=== PATIENT | female | born 1990 | race Two or more races ===

== ENCOUNTER 2018-10-16 21:03 | Emergency (ER) | payer SELFPAY ==
[~2018-10-16] VITALS: Ht 157.5 cm; Wt 56.2 kg
[2018-10-16 21:26] VITALS: BP 130/75
[2018-10-16 22:25] LABS: Basophils # (auto) 0 uL; Basophils % (auto) 0.4 % (0.0-2.0); Eosinophils # (auto) 0.1 uL; Eosinophils % (auto) 1.3 % (0.0-7.0); Hematocrit 41.9 % (36.0-46.0); Hemoglobin 14.2 g/dL (12.2-16.2); Lymphocytes # (auto) 2.5 uL; Lymphocytes % (auto) 40.9 % (10.0-50.0); Mean Corpuscular Hemoglobin 31.3 pg (28.0-32.0); Mean Corpuscular Hgb Conc. 33.9 g/dL (32.0-36.0); Mean Corpuscular Volume 92.3 fL (80.0-100.0); Monocytes # (auto) 0.4 uL; Monocytes % (auto) 7.2 % (0.0-12.0); Neutrophils # (auto) 3.1 uL; Neutrophils % (auto) 50.2 % (37.0-80.0); Nucleated Red Blood Cells % 0.1 %; Platelet Count (auto) 263 10^3/uL (140-450); Red Blood Cells 4.54 10^6/uL (4.0-5.20); Red Cell Distribution Width 12.3 % (11.8-14.3); White Blood Cell 6.1 10^3/uL (4.4-10.8)
[2018-10-16] MEDS ORDERED: cefTRIAXone SOD 1,000 MG VL IM ONE (22:30)
[2018-10-16] MEDS ORDERED: AZITHROMYCIN 250 MG TAB PO ONE (22:30)
[2018-10-16 22:42] LABS: Potassium 3.8 mmol/L (3.5-5.1)
[2018-10-16 22:47] LABS: Albumin 3.9 g/dL (3.4-5.0); BUN/Creatinine Ratio 27.5; Calcium 8.3 mg/dL (8.5-10.1)
[2018-10-16 22:49] LABS: Bilirubin, Total 0.4 mg/dL (0.2-1.0); Total Protein 7.4 g/dL (6.4-8.2)
[2018-10-16 22:49] LABS: Urine Bacteria FEW /hpf (None Seen); Urine Blood Negative /uL (Negative); Urine WBC 31 /hpf (0 - 5)
== END 2018-10-16 23:20 | disposition home or self-care (01) ==
LOC: ER 21:14
DX: N39.0 Urinary tract infection, site not specified (principal); A64 Unspecified sexually transmitted disease
CPT/HCPCS: 36415; 80053; 81001; 84702; 85025; 96372; 99283; J0696

== ENCOUNTER 2019-05-29 11:04 | Observation (INO) | payer MEDICAID ==
[2019-05-29] MEDS ORDERED: PREN-96 PO (12:24)
== END 2019-05-29 13:15 | disposition home or self-care (01) | DRG 566 ==
LOC: LDRP 11:04
PROVIDERS: ADMIT Obstetrics & Gynecology; ATTEND Obstetrics & Gynecology
DX: O36.5930 Maternal care for other known or suspected poor fetal growth, third trimester, not applicable or unspecified (principal); Z3A.36 36 weeks gestation of pregnancy
CPT/HCPCS: 59025; 81002; G0378

== ENCOUNTER 2019-06-05 09:02 | Observation (INO) | payer MEDICAID ==
[~2019-06-05 09:02] MED LIST: PREN-96 PO
== END 2019-06-05 10:20 | disposition home or self-care (01) | DRG 566 ==
LOC: LDRP 09:02
PROVIDERS: ADMIT Obstetrics & Gynecology; ATTEND Obstetrics & Gynecology
DX: O36.5930 Maternal care for other known or suspected poor fetal growth, third trimester, not applicable or unspecified (principal); O26.893 Other specified pregnancy related conditions, third trimester; O41.93X0 Disorder of amniotic fluid and membranes, unspecified, third trimester, not applicable or unspecified; R51 Headache; R11.0 Nausea; Z3A.37 37 weeks gestation of pregnancy
CPT/HCPCS: 59025; 76818; 81002; G0378

== ENCOUNTER 2019-06-07 10:47 | Inpatient (IN) | payer MEDICAID ==
[~2019-06-07] VITALS: Ht 154.9 cm; Wt 74.8 kg
[2019-06-07] MEDS ORDERED: LACT. RINGERS/OXYTOCIN 20UNITS 1,000 ML IV SCH (12:09)
[2019-06-07] MEDS ORDERED: PENICILLIN G POT 5MIL/D5 50ML 50 ML IV ONE (12:15)
[2019-06-07] MEDS ORDERED: NALBUPHINE HCL 10 MG/1ml INJECTION IV PRN (12:15)
[2019-06-07] MEDS ORDERED: LIDOCAINE 2%HCL (LOCAL ANESTH.) INJ 20ML MDV ID ONE (12:15)
[2019-06-07] MEDS ORDERED: PHISODERM TOP SOLN 240ML BTL TOP PRN (12:15)
[2019-06-07] MEDS ORDERED: METHYLERGONOVINE MALEATE 0.2 MG/ML AMP IM PRN (12:15)
[2019-06-07 12:58] LABS: Basophils # (auto) 0 uL; Basophils % (auto) 0.2 % (0.0-2.0); Eosinophils # (auto) 0 uL; Eosinophils % (auto) 0.6 % (0.0-7.0); Hematocrit 37.4 % (36.0-46.0); Hemoglobin 12.7 g/dL (12.2-16.2); Lymphocytes # (auto) 1.2 uL; Lymphocytes % (auto) 15.4 % (10.0-50.0); Mean Corpuscular Hemoglobin 31.4 pg (28.0-32.0); Mean Corpuscular Hgb Conc. 33.9 g/dL (32.0-36.0); Mean Corpuscular Volume 92.7 fL (80.0-100.0); Monocytes # (auto) 0.6 uL; Neutrophils # (auto) 5.7 uL; Neutrophils % (auto) 75.8 % (37.0-80.0); Platelet Count (auto) 212 10^3/uL (140-450); Red Blood Cells 4.03 10^6/uL (4.0-5.20); Red Cell Distribution Width 12.9 % (11.8-14.3); White Blood Cell 7.5 10^3/uL (4.4-10.8)
[2019-06-07] MEDS: LACTATED RINGER'S 1,000 ML IV SCH (12:58)
[2019-06-07 13:13] LABS: INR 0.93 (0.9-1.15); Partial Thromboplastin Time 28.1 sec (23.64-32.05)
[2019-06-07 13:17] LABS: Albumin 2.4 g/dL (3.4-5.0); BUN/Creatinine Ratio 19.6; Calcium 8.2 mg/dL (8.5-10.1); Potassium 3.8 mmol/L (3.5-5.1)
[2019-06-07 13:20] LABS: Bilirubin, Total 0.4 mg/dL (0.2-1.0); Total Protein 6.8 g/dL (6.4-8.2)
[2019-06-07] MEDS: WITCH HAZEL-GLYCERIN PAD TOP PRN (13:40)
[2019-06-07] MEDS: DERMOPLAST 60ML BOTTLE TOP PRN (13:41)
[2019-06-07 16:08] LABS: Urine Bacteria NONE SEEN /hpf (None Seen); Urine Blood 1+ /uL (Negative); Urine Hyaline Cast FEW /lpf (0 - 2); Urine Mucus FEW (None Seen); Urine Specific Gravity 1.025 (1.001-1.035); Urine WBC 5 /hpf (0 - 5)
[2019-06-07] MEDS ORDERED: PENICILLIN G POTASSIUM 2,500,000 UNITS in D5W 5% 50 ML IV SCH (16:15)
[2019-06-07] MEDS: PENICILLIN G POTASSIUM 2,500,000 UNITS in D5W 5% 50 ML IV SCH ×2 (17:26→21:15)
[2019-06-07] MEDS ORDERED: LACTATED RINGER'S 1,000 ML IV ONE (23:29)
[2019-06-07] MEDS ORDERED: LIDOCAINE HCL 2 %PF INJ 10ML AMP IJ ONE (23:30)
[2019-06-07] MEDS ORDERED: fentaNYL W ROPIVACAINE 150 ML EPI SCH (23:30)
[2019-06-07] MEDS ORDERED: ePHEDrine SULFATE 50 MG/ML AMP IV ONE (23:30)
[2019-06-08] MEDS ORDERED: SODIUM CHLORIDE 0.9% 500 ML IV PRN (00:32)
[2019-06-08] MEDS ORDERED: ePHEDrine SULFATE 50 MG/ML AMP IV ONE (00:45)
[2019-06-08] MEDS ORDERED: fentaNYL W ROPIVACAINE 150 ML EPI SCH (00:45)
[2019-06-08] MEDS ORDERED: NALOXONE HCL 0.4 MG/ML VIAL IV ONE (00:45)
[2019-06-08] MEDS: PENICILLIN G POTASSIUM 2,500,000 UNITS in D5W 5% 50 ML IV SCH (01:22)
--- NOTE | 2019-06-08 04:43 | NUR ---
Teaching: Reviewed information in [employer] booklet with patient. Discussed benefits of and risks associated with not . Discussed different positions, proper latch, feeding cues, and baby-led . Provided information of medication side effects related to . All questions and concerns addressed at this time. Patient verbalized understanding of information. Infant latched at this time.
[2019-06-08 05:16] LABS: Alcohol, Urine < 3.0 mg/dL (0-5); Amphetamine Screen, Urine NEGATIVE (NEGATIVE); Barbiturate Scree,Urine NEGATIVE (NEGATIVE); Benzodiazephine Screen, Urine NEGATIVE (NEGATIVE); Cannabinoid Screen, Urine NEGATIVE (NEGATIVE); Cocaine Screen, Urine NEGATIVE (NEGATIVE); Opiate Scree,Urine NEGATIVE (NEGATIVE); Phencyclidine Screen, Urine NEGATIVE (NEGATIVE)
[2019-06-08] MEDS: LACTATED RINGER'S 1,000 ML IV SCH (06:18)
--- NOTE | 2019-06-08 06:35 | NUR ---
Ambulation: Patient OOB with standby assistance by RN. Patient ambulated to bathroom with steady gait. Patient able to void without difficulty. [facility] teaching provided with returned demonstration by patient. Clean gown provided and bed linen changed. Patient ambulated back to bed with steady gait and no distress noted.
[2019-06-08 08:09] LABS: RPR Non Reactive (Non Reactive)
[2019-06-08 11:00] VITALS: BP 118/79
[2019-06-08] MEDS ORDERED: ACETAMINOPHEN 325 MG TAB PO PRN (13:45)
[2019-06-08 15:00] VITALS: BP 115/72
--- NOTE | 2019-06-08 15:15 | NUR ---
Mother having difficulty getting to stay latched on for . Tried different positions, discussed proper positioning of nipple, and mother. Infant would latch, suck, then release in a few seconds after suckling. PT inquire on given formula discuss change of infant's gut with formula. PT declined to supplement at this time. Provided encouragement and reassure that infant is getting enough to eat.
[2019-06-08 19:00] VITALS: BP 114/68
[2019-06-08] MEDS: IBUPROFEN 600 MG TAB PO PRN (19:13)
[2019-06-08] MEDS ORDERED: guaiFENesin-DM 100/10mg/5ml SYR PO PRN (19:15)
[2019-06-08 23:00] VITALS: BP 111/72
[2019-06-09 03:00] VITALS: BP 101/61
--- NOTE | 2019-06-09 06:15 | NUR ---
Report received from JACQUELYN Lewis on stable pt . assumed care. Addendum: 06/09/19 at 1420 by Lianet Ray RN Amended: Links added.
[2019-06-09 07:00] VITALS: BP 117/65
[2019-06-09] MEDS: IBUPROFEN 600 MG TAB PO PRN (07:25)
[2019-06-09] MEDS: WITCH HAZEL-GLYCERIN PAD TOP PRN (09:33)
[2019-06-09] MEDS: DERMOPLAST 60ML BOTTLE TOP PRN (09:33)
[2019-06-09 10:40] VITALS: BP 108/66
--- NOTE | 2019-06-09 12:50 | NUR ---
Discharge: Discharge instructions given as ordered. Pt encouraged to follow up with [facility]ARN[facility] AND DEVELOPMENT ADMINISTRATOR as instructed. All questions and concerns addressed. Patient verbalized understanding. Medication reconciliation completed and copy given to patient. All required/requested vaccines given and copies of vaccinations given to patient. Patient encouraged to prepare to depart unit.
--- NOTE | 2019-06-09 13:10 | NUR ---
Discharge: Patient ambulated with steady gait to vehicle via wheelchair with all personal belongings, accompanied by staff and family member. No distress noted at time of departure, no adverse changes in status since initial assessment.
== END 2019-06-09 13:10 | disposition home or self-care (01) | DRG 560 ==
LOC: LDRP 10:47
PROVIDERS: ADMIT Obstetrics & Gynecology; ATTEND Obstetrics & Gynecology
PROC: 10E0XZZ Delivery of Products of Conception, External Approach (ICD-10-PCS; principal; 2019-06-08)
PROC: 0KQM0ZZ Repair Perineum Muscle, Open Approach (ICD-10-PCS; 2019-06-08)
PROC: 3E0R3BZ Introduction of Anesthetic Agent into Spinal Canal, Percutaneous Approach (ICD-10-PCS; 2019-06-08)
PROC: 00HU33Z Insertion of Infusion Device into Spinal Canal, Percutaneous Approach (ICD-10-PCS; 2019-06-08)
DX: O69.1XX0 Labor and delivery complicated by cord around neck, with compression, not applicable or unspecified (principal); O70.1 Second degree perineal laceration during delivery; Z3A.37 37 weeks gestation of pregnancy; Z37.0 Single live birth
CPT/HCPCS: 36415; 51702; 59025; 59409; 62282; 80053; 80307; 81001; 81002; 84112; 85025; 85610; 85730; 86592; 86850; 86900; 86901; 94762; 96365; 96366; G0378; J2540; J2590; J3010; J7060